=== PATIENT | female | born 1995 | race Caucasian/White ===

== ENCOUNTER 2019-06-12 17:47 | Emergency (ER) | payer OTHER ==
[2019-06-12 17:52] VITALS: BP 150/76; PULSE 87; TEMP 98.4; BMI 32.4
--- NOTE | 2019-06-12 19:46 | PDOC ---
History of Present Illness - General Chief Complaint: Pain, Acute Stated Complaint: ABD PAIN Time Seen by Provider: 06/12/19 19:29 History Source: Patient - History of Present Illness Initial Comments: 06/12/19 19:40 24 year old female s/p 05/26/2019 in [facility] c/o left sided pelvic pain, dizzy, nausea, p denies fever, vaginal bleeding, urinary symptoms. vomiting, abdominal pain PMHX: none Past History - Past Medical History Allergies/Adverse Reactions: Allergies Allergy/AdvReac Type Severity Reaction Status Date / Time No Known Allergies Allergy Verified 06/12/19 17:50 Anemia: Yes COPD: No - Immunization History Immunization Up to Date: Yes - Suicide/Smoking/Psychosocial Hx Smoking History: Never smoked Hx Alcohol Use: No Drug/Substance Use Hx: No Review of Systems - Review of Systems Able to Perform ROS?: Yes Is the patient limited Mohawk proficient: No Constitutional: No: Symptoms Reported, See HPI, Chills, Diaphoresis, Fever, Loss of Appetite, Malaise, Night Sweats, Weakness, Weight Stable, Unintentional Wgt. Loss, Unexplained wgt Loss, Other ABD/GI: Yes: Other (left pelvic pain) : No: Symptoms Reported, See HPI, Burning, Dysuria, Discharge, Frequency, Flank Pain, Hematuria, Incontinence, Pain, Urgency, Testicular Mass, Testicular Swelling, Lesions, Testicular Pain, Other *Physical Exam - Vital Signs Last Vital Signs Temp Pulse Resp BP Pulse Ox 98.4 F 87 18 150/76 97 06/12/19 17:50 06/12/19 17:50 06/12/19 17:50 06/12/19 17:50 06/12/19 17:50 - Physical Exam General Appearance: Yes: Appropriately Dressed Respiratory/Chest: positive: Lungs Clear, Normal Breath Sounds Female Pelvic Exam: positive: other (refused pelvic exam) Gastrointestinal/Abdominal: positive: Normal Bowel Sounds, Soft, Other (left pelvi area tenderness) Extremity: positive: Normal Capillary Refill Integumentary: positive: Normal Color, Dry, Warm Neurologic: positive: Fully Oriented, Alert, Normal Mood/Affect ED Treatment Course - LABORATORY CBC & Chemistry Diagram: 06/12/19 20:25 06/12/19 20:25 Progress Note - Progress Note Progress Note: A: left pelvic pain P: labs beta HCG <5 TVUS : left ovarian cyst ua *DC/Admit/Observation/Transfer Diagnosis at time of Disposition: Pelvic pain, Ovarian cyst, left - Discharge Dispostion Disposition: HOME Condition at time of disposition: Improved - Referrals Referrals: Veronika Griffith MD [Primary Care Provider] - Call tomorrow Yonathan Clancy MD [Staff Physician] - - Patient Instructions Printed Discharge Instructions: DI for Ovarian Cyst Additional Instructions: take ibuprofen every 6 hours as needed for pain follow up with a applied anthropologist as soon as possible. return to the ER for further management of care. - Post Discharge Activity Forms/Work/School Notes: Back to Work
[2019-06-12] MEDS ORDERED: diphenhydrAMINE HCL 25 MG CAPSULE (FP) PO ONE ×2 (19:49→20:32)
[2019-06-12 20:56] LABS: BASO % 0.2 % (0-2.0); EOS % 1.3 % (0-4.5); HEMATOCRIT 41.7 % (32.4-45.2); HEMOGLOBIN 13.6 GM/dL (10.7-15.3); LYMPH % 31.3 % (8-40); MCH 28.2 pg (25.7-33.7); MCHC 32.6 g/dl (32.0-36.0); MEAN CELL VOLUME 86.5 fl (80-96); MEAN PLT VOLUME 10.7 fl (7.5-11.1); MONO % 8.6 % (3.8-10.2); NEUT % 58.6 % (42.8-82.8); PLATELET COUNT 201 K/MM3 (134-434); RBC 4.83 M/mm3 (3.60-5.2); RDW 13.8 % (11.6-15.6); URINE APPEARANCE CLEAR; URINE BILIRUBIN NEGATIVE (NEGATIVE); URINE COLOR YELLOW; URINE GLUCOSE (UA) NEGATIVE (NEGATIVE); URINE KETONE NEGATIVE (NEGATIVE); URINE LEUK ESTERASE NEGATIVE (NEGATIVE); URINE NITRITE NEGATIVE (NEGATIVE); URINE PROTEIN NEGATIVE (NEGATIVE); URINE UROBILINOGEN 0.2 mg/dL (0.2-1.0); WHITE BLOOD COUNT 6.8 K/mm3 (4.0-10.0)
[2019-06-12 21:04] LABS: ALBUMIN 3.7 g/dl (3.4-5.0); BILIRUBIN,TOTAL 0.2 mg/dL (0.2-1); BLOOD UREA NITROGEN 13.2 mg/dL (7-18); CALCIUM 9.5 mg/dL (8.5-10.1); CREATININE 0.7 mg/dL (0.55-1.3); POTASSIUM 4.3 mmol/L (3.5-5.1); TOT PROT 8.3 g/dl (6.4-8.2)
[2019-06-12] MEDS ORDERED: KETOROLAC TROMETHAMINE 30 MG/1 ML VIAL IVPUSH ONE (22:09)
[2019-06-12] MEDS ORDERED: KETOROLAC TROMETHAMINE 30 MG/1 ML VIAL ONE (22:25)
== END 2019-06-12 22:34 | disposition home or self-care (01) ==
LOC: JER 17:47
PROC: 3E0333Z Introduction of Anti-inflammatory into Peripheral Vein, Percutaneous Approach (ICD-10-PCS; principal; 2019-06-12)
DX: N83.202 Unspecified ovarian cyst, left side (principal)
CPT/HCPCS: 36415; 76830-TC; 80053; 81003; 84702; 85025; 87086; 99283-25

== ENCOUNTER 2020-09-18 06:01 | Day surgery (SDC) | payer OTHER ==
[~2020-09-18 06:01] MED LIST: FERRIC CARBOXYMALTOSE 750 MG in SODIUM CHLORIDE 250 ML IVPB ONE
[2020-09-18] MEDS ORDERED: ACETAMINOPHEN 325 MG TABLET (FP) PO ONE (10:45)
[2020-09-18] MEDS ORDERED: DEXAMETHASONE SODIUM PHOSPHATE 4 MG in SODIUM CHLORIDE 50 ML IVPB ONE (10:45)
[2020-09-18] MEDS ORDERED: DEXAMETHASONE INJECTION 4 MG in SODIUM CHLORIDE 50 ML IVPUSH ONE (10:45)
[2020-09-18] MEDS ORDERED: FERRIC CARBOXYMALTOSE 750 MG in SODIUM CHLORIDE 250 ML IVPB ONE (11:00)
[2020-09-18 17:23] LABS: BASO % 0.5 % (0-2.0); EOS % 1.1 % (0-4.5); HEMATOCRIT 42.8 % (32.4-45.2); LYMPH % 33.6 % (8-40); MCH 29.2 pg (25.7-33.7); MCHC 32.8 g/dl (32.0-36.0); MEAN CELL VOLUME 89.2 fl (80-96); MEAN PLT VOLUME 10.6 fl (7.5-11.1); MONO % 8.9 % (3.8-10.2); NEUT % 55.9 % (42.8-82.8); PLATELET COUNT 199 K/MM3 (134-434); RDW 15.2 % (11.6-15.6); WHITE BLOOD COUNT 8.7 K/mm3 (4.0-10.0)
[2020-09-18 17:39] LABS: POTASSIUM 4.4 mmol/L (3.5-5.1)
[2020-09-18 17:41] LABS: CALCIUM 8.5 mg/dL (8.5-10.1)
[2020-09-18 17:42] LABS: ALBUMIN 3.8 g/dl (3.4-5.0); BLOOD UREA NITROGEN 13.5 mg/dL (7-18)
[2020-09-18 17:45] LABS: CREATININE 0.9 mg/dL (0.55-1.3)
[2020-09-18 17:47] LABS: BILIRUBIN,TOTAL 0.2 mg/dL (0.2-1); TOT PROT 8.2 g/dl (6.4-8.2)
[2020-09-18 18:02] LABS: PLATELET ESTIMATE ADEQUATE
[2020-09-18 18:12] LABS: PHOSPHOROUS 1.2 mg/dL (2.5-4.9)
[2020-09-18 18:18] VITALS: TEMP 98.1
[2020-09-19 06:24] VITALS: BP 121/72; PULSE 66
== END 2020-09-18 18:22 | disposition home or self-care (01) ==
LOC: JONCNONCHE 06:01
PROVIDERS: ATTEND Internal Medicine Hematology & Oncology
PROC: 3E033GC Introduction of Other Therapeutic Substance into Peripheral Vein, Percutaneous Approach (ICD-10-PCS; principal; 2020-09-18)
PROC: 3E0333Z Introduction of Anti-inflammatory into Peripheral Vein, Percutaneous Approach (ICD-10-PCS; 2020-09-18)
DX: D50.9 Iron deficiency anemia, unspecified (principal)
CPT/HCPCS: 36415; 80053; 84100; 84703; 85025; 96365; 96375; J1439

== ENCOUNTER 2020-09-25 07:12 | Day surgery (SDC) | payer OTHER ==
[2020-09-25] MEDS ORDERED: FERRIC CARBOXYMALTOSE 750 MG in SODIUM CHLORIDE 250 ML IVPB ONE (08:45)
[2020-09-25] MEDS ORDERED: IRON SUCROSE INJECTION 200 MG in SODIUM CHLORIDE 100 ML IVPB ONE (08:45)
[2020-09-25 11:11] VITALS: PULSE 76; TEMP 98.2
[2020-09-25 11:12] VITALS: BP 124/70
== END 2020-09-25 09:50 | disposition home or self-care (01) ==
LOC: JONCCHEMO 07:12
PROVIDERS: ATTEND Internal Medicine Hematology & Oncology
PROC: 3E033GC Introduction of Other Therapeutic Substance into Peripheral Vein, Percutaneous Approach (ICD-10-PCS; principal; 2020-09-25)
DX: D50.9 Iron deficiency anemia, unspecified (principal)
CPT/HCPCS: 96365; J1756

== ENCOUNTER 2020-09-30 07:06 | Day surgery (SDC) | payer OTHER ==
[2020-09-30] MEDS ORDERED: IRON SUCROSE INJECTION 200 MG in SODIUM CHLORIDE 100 ML IVPB ONE (10:00)
[2020-09-30 17:31] LABS: BASO % 0.2 % (0-2.0); EOS % 0.8 % (0-4.5); HEMATOCRIT 45.7 % (32.4-45.2); LYMPH % 29.1 % (8-40); MCH 29.5 pg (25.7-33.7); MCHC 32.7 g/dl (32.0-36.0); MEAN CELL VOLUME 90.2 fl (80-96); MONO % 9.5 % (3.8-10.2); NEUT % 60.4 % (42.8-82.8); RBC 5.07 M/mm3 (3.60-5.2); RDW 17.3 % (11.6-15.6); WHITE BLOOD COUNT 7.6 K/mm3 (4.0-10.0)
[2020-09-30 17:36] VITALS: TEMP 98.3
[2020-09-30 17:39] VITALS: BP 109/75; PULSE 85
[2020-09-30 17:51] LABS: POTASSIUM 3.5 mmol/L (3.5-5.1)
[2020-09-30 17:53] LABS: ALBUMIN 3.1 g/dl (3.4-5.0); CALCIUM 7.1 mg/dL (8.5-10.1)
[2020-09-30 17:54] LABS: BLOOD UREA NITROGEN 14.2 mg/dL (7-18)
[2020-09-30 17:56] LABS: BILIRUBIN,DIRECT 0.1 mg/dL (0.0-0.2)
[2020-09-30 17:57] LABS: CREATININE 0.6 mg/dL (0.55-1.3)
[2020-09-30 17:58] LABS: BILIRUBIN,TOTAL 0.1 mg/dL (0.2-1); TOT PROT 6.7 g/dl (6.4-8.2)
[2020-09-30 18:11] LABS: PHOSPHOROUS 1.1 mg/dL (2.5-4.9)
[2020-09-30 19:12] LABS: PLATELET ESTIMATE NORMAL
[2020-09-30 19:41] LABS: MEAN PLT VOLUME 10.6 fl (7.5-11.1); PLATELET COUNT 201 K/MM3 (134-434)
== END 2020-09-30 17:25 | disposition home or self-care (01) ==
LOC: JONCCHEMO 07:06 → JONCNONCHE 07:06
PROVIDERS: ATTEND Internal Medicine Hematology & Oncology
PROC: 3E033GC Introduction of Other Therapeutic Substance into Peripheral Vein, Percutaneous Approach (ICD-10-PCS; principal; 2020-09-30)
DX: D50.9 Iron deficiency anemia, unspecified (principal)
CPT/HCPCS: 36415; 80048; 80076; 82728; 83540; 83550; 84100; 85025; 96365; J1756

== ENCOUNTER 2020-10-09 05:42 | Day surgery (SDC) | payer OTHER ==
[2020-10-09] MEDS ORDERED: IRON SUCROSE INJECTION 200 MG in SODIUM CHLORIDE 100 ML IVPB ONE (09:00)
[2020-10-09 09:29] LABS: POTASSIUM 4.2 mmol/L (3.5-5.1)
[2020-10-09 09:31] LABS: CALCIUM 9.3 mg/dL (8.5-10.1)
[2020-10-09 09:32] LABS: BLOOD UREA NITROGEN 7.3 mg/dL (7-18); MAGNESIUM 2.1 mg/dL (1.8-2.4)
[2020-10-09 09:34] LABS: BILIRUBIN,DIRECT 0.2 mg/dL (0.0-0.2)
[2020-10-09 09:35] LABS: CREATININE 0.7 mg/dL (0.55-1.3); PHOSPHOROUS 1.3 mg/dL (2.5-4.9)
[2020-10-09 09:36] LABS: BILIRUBIN,TOTAL 0.5 mg/dL (0.2-1)
[2020-10-09 12:06] VITALS: TEMP 97.4
[2020-10-09 12:09] VITALS: BP 119/72; PULSE 76
== END 2020-10-09 09:35 | disposition home or self-care (01) ==
LOC: JONCNONCHE 05:42
PROVIDERS: ATTEND Internal Medicine Hematology & Oncology
PROC: 3E033GC Introduction of Other Therapeutic Substance into Peripheral Vein, Percutaneous Approach (ICD-10-PCS; principal; 2020-10-09)
DX: D50.9 Iron deficiency anemia, unspecified (principal)
CPT/HCPCS: 36415; 80048; 80076; 82728; 83540; 83550; 83735; 84100; 96365; J1756

== ENCOUNTER 2020-10-16 06:07 | Day surgery (SDC) | payer OTHER ==
[2020-10-16] MEDS ORDERED: MAGNESIUM SULFATE 1 GM in SODIUM CHLORIDE 100 ML IVPB ONE (10:00)
[2020-10-16] MEDS ORDERED: DEXTROSE IVPB ONE ×2 (10:00→11:00)
[2020-10-16] MEDS ORDERED: POTASSIUM PHOSPHATE IVPB ONE (10:00)
[2020-10-16] MEDS ORDERED: NORMAL SALINE IVPB ONE (10:00)
[2020-10-16] MEDS ORDERED: WATER IVPB ONE (11:00)
[2020-10-16] MEDS ORDERED: SODIUM PHOSPHATE IVPB ONE (11:00)
[2020-10-16 13:36] LABS: PHOSPHOROUS 2.3 mg/dL (2.5-4.9)
[2020-10-16 16:58] VITALS: BP 132/66; PULSE 68; TEMP 98.1
== END 2020-10-16 18:30 | disposition home or self-care (01) ==
LOC: JONCNONCHE 06:07
PROVIDERS: ATTEND Internal Medicine Hematology & Oncology
PROC: 3E033GC Introduction of Other Therapeutic Substance into Peripheral Vein, Percutaneous Approach (ICD-10-PCS; principal; 2020-10-16)
DX: D50.9 Iron deficiency anemia, unspecified (principal)
CPT/HCPCS: 36415; 82306; 83735; 84100; 96365

== ENCOUNTER 2021-09-21 22:15 | Emergency (ER) | payer OTHER ==
[2021-09-21 22:36] VITALS: BP 104/60; PULSE 59; TEMP 98.3; BMI 36.3
[2021-09-21] MEDS ORDERED: IBUPROFEN 600 MG TABLET (FP) PO ONE ×2 (23:18→23:20)
== END 2021-09-21 23:35 | disposition home or self-care (01) ==
LOC: JERFT 22:15 → JER 22:15 → JERFT 23:35
DX: N61.0 Mastitis without abscess (principal)
CPT/HCPCS: 99283-25